=== PATIENT | female | born 1960 | race Caucasian/White ===

== ENCOUNTER → 2024-11-01 11:00 | Outpatient (BNVA) | payer OTHER, SELFPAY | PROVIDERS: PCP Nurse Practitioner Family; Visit Provider Podiatrist Foot & Ankle Surgery | DX: M79.671 Pain in right foot (principal); M76.821 Posterior tibial tendinitis, right leg; M19.071 Primary osteoarthritis, right ankle and foot | CPT/HCPCS: 73630 ==

== ENCOUNTER 2025-01-17 12:11 | Outpatient (CLI) | payer BC, SELFPAY ==
--- NOTE | 2025-01-17 12:23 | XR_ITS ---
WS: [id number] XR knee LT 3V* [id number] REASON FOR EXAM: LEFT KNEE PAIN FINDINGS: No fracture or focal bone lesion. Small joint effusion. Medial knee joint space is intact and relatively well preserved. Minimal subchondral sclerosis and osteophytosis. The lateral knee joint space is intact and well preserved. Minimal subchondral sclerosis. Patellofemoral joint space appears intact with minimal subchondral sclerosis and osteophytosis of the patella. XR/XR knee LT 3V* [id number] IMPRESSION: Small joint effusion with minimal osteoarthritis.
--- NOTE | 2025-01-17 12:24 | XR_ITS ---
WS: [id number] XR tibia fibula LT 2V [id number] REASON FOR EXAM: PAIN IN LEFT KNEE FINDINGS: The left tibia and fibula are intact with no fracture. No periosteal reaction or focal bone lesion. No radiopaque soft tissue foreign body. XR/XR tibia fibula LT 2V [id number] IMPRESSION: No significant abnormality.
== END 2025-01-17 12:12 | disposition home or self-care (01) ==
PROVIDERS: PCP Nurse Practitioner Family; Visit Provider Nurse Practitioner Family
DX: M25.462 Effusion, left knee (principal); M25.762 Osteophyte, left knee; M25.562 Pain in left knee; Z86.006 Personal history of melanoma in-situ
CPT/HCPCS: 73562; 73590

== ENCOUNTER 2025-01-20 15:07 | Outpatient (CLI) | payer BC, SELFPAY ==
--- NOTE | 2025-01-20 15:58 | MR_ITS ---
WS: [id number] MRI LEFT KNEE HISTORY: Pain for 1 month. COMPARISON: Radiograph 01/17/2025 Anterior cruciate ligament: Abnormal signal throughout a small caliber ACL. There is intermediate signal within the ACL. The posterior fibers may be absent. There does appear to be a small insertion site tear distally. There is no full- thickness complete tear. Posterior cruciate ligament: Intact. Medial collateral ligament: Mild displacement of the MCL from the joint line by an extruded meniscus. Moderate fluid surrounding the MCL. No full-thickness tear. Posterior lateral corner structures: Intact. Medial menisci: Mild intrasubstance degeneration in the posterior horn. Intrasubstance degeneration most significant towards the meniscal root. Variable signal and rounded meniscus. Advanced intrasubstance degeneration. Lateral meniscus: Intrasubstance degeneration. Intermediate signal in the anterior horn does not extend to articular surface. No definite tear. Extensor mechanism: Distal quadriceps tendon and patellar tendons are intact. Fluid and soft tissue: Moderate suprapatellar joint effusion. There is a large amount of edema surrounding the knee. Tiny Dalton's cyst. Osseous and articular structures: Patellofemoral compartment: Moderate narrowing of the patellofemoral joint space with diffuse chondromalacia. No marrow edema. Patellar retinaculum are intact. Medial compartment: Moderate to severe narrowing of the medial compartment with mild chondromalacia which is diffuse. Marrow edema involving a large portion of the medial tibial plateau with extension to the base of the tibial spines. Small marginal osteophytes. Lateral compartment: Mild narrowing of the lateral compartment with mild chondromalacia. 8 mm subchondral lesion in the posterior lateral tibial plateau with. No fractures or marrow edema. MR/MR knee LT con* [id number] IMPRESSION: 1. 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 No full-thickness tear. 2. Atrophied ACL. Suspect at least a partial tear involving the posterior fibe rs of the ACL. 3. Mild MCL sprain with displacement from the joint line by extruded meniscus. 4. Intrasubstance degeneration posterior horn medial meniscus, greatest toward the meniscal root. Indeterminate for tear along the inferior articular surface . 5. Moderate suprapatellar joint effusion. 6. Soft tissue edema surrounding the knee and a tiny Dalton's cyst. 7. 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 8. Moderate to severe narrowing medial compartment with diffuse mild chondroma lacia. Marrow edema along the medial tibial plateau. 9. Mild narrowing lateral compartment with chondromalacia.
== END 2025-01-20 15:08 | disposition home or self-care (01) ==
LOC: RAD 15:08
PROVIDERS: PCP Nurse Practitioner Family; Visit Provider Nurse Practitioner Family
DX: S83.502A Sprain of unspecified cruciate ligament of left knee, initial encounter (principal); M22.42 Chondromalacia patellae, left knee; M25.462 Effusion, left knee; X58.XXXA Exposure to other specified factors, initial encounter
CPT/HCPCS: 73721

== ENCOUNTER 2025-05-02 13:18 | Outpatient (CLI) | payer BC, SELFPAY ==
--- NOTE | 2025-05-02 13:21 | MM_ITS ---
WS: [id number] BILATERAL 3D TOMOSYNTHESIS DIGITAL SCREENING MAMMOGRAPHY WITH CAD CLINICAL INFORMATION: ANNUAL SCREENING HISTORY: Screening mammogram. No current complaints. COMPARISON: 2023 TECHNIQUE: Bilateral CC and MLO views. FINDINGS: Scattered fibroglandular densities bilaterally. No suspicious focal mass, asymmetry, calcifications, or architectural distortion. No evidence of malignancy. Lucent centered calcifications RIGHT breast. Vascular calcification. MM/MM scr tomosynthesis [id number] IMPRESSION: DENSITY: There are scattered areas of fibroglandular density. BI-RADS: 2 - Benign. FOLLOW UP: 1 Year Follow-up Recommend return to annual screening mammography.
== END 2025-05-02 13:19 | disposition home or self-care (01) ==
LOC: RAD 13:19
PROVIDERS: PCP Nurse Practitioner Family; Visit Provider Nurse Practitioner Family
DX: Z12.31 Encounter for screening mammogram for malignant neoplasm of breast (principal); R92.323 Mammographic fibroglandular density, bilateral breasts; R92.1 Mammographic calcification found on diagnostic imaging of breast
CPT/HCPCS: 77063; 77067